=== PATIENT | female | born 1990 | race Caucasian/White ===

== ENCOUNTER 2019-11-07 18:19 | Inpatient (IN) | payer BC, SELFPAY ==
[2019-11-07] VITALS (15 sets, daily range): BP systolic 114–147; BP diastolic 66–99; PULSE 86–114; TEMP 37.3; BMI 38.7
[2019-11-07 17:32] LABS: Basophils Absolute Auto 0.1 K/mm3 (0.0-0.1); Basophils Percent Auto 0.5 % (0.2-1.2); Eosinophils Absolute Auto 0.1 K/mm3 (0-0.3); Eosinophils Percent Auto 0.6 % (0-4.4); Hematocrit 33.1 % (37.0-47.0); Hemoglobin 11.4 g/dL (12.0-15.0); Immature Granulocyte Absolute 0.33 K/mm3 (0.00-0.031); Immature Granulocyte Percent A 2.8 % (0-0.5); Lymphocytes Absolute Auto 2.21 K/mm3 (0.9-3.2); Lymphocytes Percent Auto 18.7 % (18.3-44.2); Mean Corpuscular HGB Conc 34.4 g/dl (32-36); Mean Corpuscular Hemoglobin 30.2 pg (26-34); Mean Corpuscular Volume 87.6 fl (80-100); Mean Platelet Volume 12.7 fl (7.4-10.4); Monocytes Absolute Auto 0.9 K/mm3 (0.1-0.6); Monocytes Percent Auto 7.9 % (2.6-8.5); Neutrophils Absolute Auto 8.2 K/mm3 (1.3-6.7); Neutrophils Percent Auto 69.5 % (45.5-73.1); Platelet Count Result 170 k/mm3 (150-375); Red Blood Count 3.78 M/mm3 (4.2-5.4); White Blood Count 11.8 K/mm3 (4.5-10.0)
[2019-11-07 17:44] LABS: Alanine Aminotransferase 11 U/L (4-35); Albumin Level 3.4 g/dL (3.5-5.1); Alkaline Phosphatase 169 U/L (38-126); Anion Gap 5 mmol/L (8-16); Aspartate Amino Transferase 18 U/L (14-36); Bilirubin,Total 0.3 mg/dL (0.2-1.3); Blood Urea Nitrogen 6 mg/dL (7-17); Calcium 8.9 mg/dL (8.4-10.2); Carbon Dioxide 21 mmol/L (22-30); Chloride 106 mmol/L (98-107); Estimated Glomerular Filt Rate > 60; Glucose 90 mg/dL (65-105); Potassium 3.8 mmol/L (3.4-5.0); Sodium 132 mmol/L (137-145); Uric Acid 5.1 mg/dL (2.5-7.5)
[2019-11-07 17:50] LABS: Add Urine Microscopic? YES; Appearance Urine Clear (Clear); Bacteria Urine Trace /hpf; Bilirubin Urine Negative (Negative); Blood Urine Negative (Negative); Color Urine Colorless (Yellow); Glucose Urine UA Negative (Negative); Ketones Urine Negative (Negative); Leukocyte Esterase Ur 1+ LEU/UL (NEGATIVE); Nitrate Urine Negative (Negative); Protein Urine Negative (Negative); Squamous Epithelial Cell Urine Occasional /hpf (Few); Urobilinogen Urine Negative mg/dL (<2.0)
[2019-11-07 17:51] LABS: Specific Grav Ur 1.003 (1.001-1.035)
[2019-11-07 17:52] LABS: Creatinine Urine 11.9 mg/dL; Total Protein Urine Random 15 mg/dL
--- NOTE | 2019-11-07 19:22 | LDADM ---
This patient, Angy Aleman, was admitted to Labor/Delivery/Recovery 104 on 11/07/19 at 18:19. Plans for labor, pain management and were discussed with patient. Patient/family oriented to hospital policies and general routines including ID bracelet, bed and alarms, visiting hours, pain management, procedures, bathroom and other care routines, personal items, smoking policy, room service/diet and guest tray routines, security routines, and visiting hours. Patient/Family are encouraged to report perceived risks to care and to ask questions if they do not understand what they are told or what they should do. See OBIX for further documentation.
[2019-11-07] MEDS: DINOPROSTONE 10 MG VAG INSERT VAGINAL (19:59)
[2019-11-07] MEDS: AMPICILLIN 2 GM/NS 100 ML 2 GM/100 ML BAG IVPB (20:00)
[2019-11-07] MEDS: LACTATED RINGERS 1,000 ML 125 ML IV CONT (20:00)
[2019-11-07] MEDS: diphenhydrAMINE HCl CAP 25 MG CAPSULE PO (22:13)
[2019-11-07] MEDS: ACETAMINOPHEN 325 MG TABLET 650 MG PO (22:13)
[2019-11-07] MEDS: CALCIUM CARBONATE (TUMS) 500 MG (200 MG ELEMENTAL) PO (23:39)
[2019-11-07] MEDS: AMPICILLIN 1 GM/NS 50 ML 1 GM/50 ML BAG IVPB (23:39)
[2019-11-08] VITALS (117 sets, daily range): BP systolic 66–178; BP diastolic 16–148; PULSE 60–219; RESP 18–20; TEMP 36.1–37.4; O2SAT 87–100
[2019-11-08] MEDS: AMPICILLIN 1 GM/NS 50 ML 1 GM/50 ML BAG IVPB ×2 (04:05→08:00)
[2019-11-08] MEDS: OXYTOCIN 30 UNITS/NS 500 ML 30 UNITS/500 ML BAG 6 UNITS IV CONT (05:55)
--- NOTE | 2019-11-08 07:37 | WPDOBADMIT ---
Obstetrics - Admit Note Admission Note: Arom clear fluid cvx /-2 record reviewed. No pertinent additions to the history and/or any subsequent changes in the physical findings that are not consistent with the expected course of the were found. Additions to the history and/or subsequent changes in the physical findings follow. None.
--- NOTE | 2019-11-08 07:52 | WPDANESEPP ---
Anes - Eval Pre Procedure Procedure: Labor epidural Date/Time: 11/08/19 07:52 Surgeon: Jr Preop Diagnosis: pain during labor Pre Op Diagnosis: PIH Patient Data Age: 29 Gender: F Height: 1.68 m Weight: 109 kg Last Vital Signs Temp 37.4 C 11/08/19 04:00 Pulse 84 11/08/19 07:46 BP 149/99 H 11/08/19 07:46 Allergies Allergy/AdvReac Type Severity Reaction Status Date / Time No Known Allergies Allergy Verified 10/26/19 12:42 Home Medications Medication Instructions Recorded Confirmed Type PNV cmb#95-ferrous fumarate-FA 1 tablet PO DAILY 10/26/19 11/07/19 History [] ergocalciferol (vitamin D2) 1,250 mcg PO WEEKLY 10/26/19 11/07/19 History [Vitamin D2] ferrous sulfate [Iron (ferrous 325 mg PO DAILY 10/26/19 11/07/19 History sulfate)] Laboratory Tests 11/07/19 11/07/19 11/07/19 17:24 17:24 17:36 WBC 11.8 K/mm3 H K/mm3 (4.5-10.0) RBC 3.78 M/mm3 L M/mm3 (4.2-5.4) Hgb 11.4 g/dL L g/dL (12.0-15.0) Hct 33.1 % L % (37.0-47.0) MCV 87.6 fl fl (80-100) MCH 30.2 pg pg (26-34) MCHC 34.4 g/dl g/dl (32-36) RDW 13.0 % % (11.5-14.5) Plt Count 170 k/mm3 k/mm3 (150-375) MPV 12.7 fl H fl (7.4-10.4) Immature Gran % (Auto) 2.8 % H % (0-0.5) Neut % (Auto) 69.5 % % (45.5-73.1) Lymph % (Auto) 18.7 % % (18.3-44.2) [place] % (Auto) 7.9 % % (2.6-8.5) Eos % (Auto) 0.6 % % (0-4.4) Baso % (Auto) 0.5 % % (0.2-1.2) Lymph # (Auto) 2.21 K/mm3 K/mm3 (0.9-3.2) [place] # (Auto) 0.9 K/mm3 H K/mm3 (0.1-0.6) Eos # (Auto) 0.1 K/mm3 K/mm3 (0-0.3) Baso # (Auto) 0.1 K/mm3 K/mm3 (0.0-0.1) Abs Immat Gran (auto) 0.33 K/mm3 H K/mm3 (0.00-0.031) Absolute Neuts (auto) 8.2 K/mm3 H K/mm3 (1.3-6.7) Absolute Nucleated RBC 0.0 K/mm3 K/mm3 (0.0-0.012) Nucleated RBC % 0.0 % % (0.0-0.2) Sodium 132 mmol/L L mmol/L (137-145) Potassium 3.8 mmol/L mmol/L (3.4-5.0) Chloride 106 mmol/L mmol/L (98-107) Carbon Dioxide 21 mmol/L L mmol/L (22-30) Anion Gap 5 mmol/L L mmol/L (8-16) BUN 6 mg/dL L mg/dL (7-17) Creatinine 0.40 mg/dL L mg/dL (0.7-1.0) Estim Creat Clear Calc Not Reportable Estimated GFR > 60 (59 - ) Glucose 90 mg/dL mg/dL (65-105) Uric Acid 5.1 mg/dL mg/dL (2.5-7.5) Calcium 8.9 mg/dL mg/dL (8.4-10.2) Total Bilirubin 0.3 mg/dL mg/dL (0.2-1.3) AST 18 U/L U/L (14-36) ALT 11 U/L U/L (4-35) Alkaline Phosphatase 169 U/L H U/L (38-126) Total Protein 6.0 g/dL L g/dL (6.3-8.2) Albumin 3.4 g/dL L g/dL (3.5-5.1) Urine Color Colorless (Yellow) Urine Appearance Clear (Clear) Urine pH 7.0 (5.0-9.0) Ur Specific [place] 1.003 (1.001-1.035) Urine Protein Negative mg/dL mg/dL (Negative) Urine Glucose (UA) Negative mg/dL mg/dL (Negative) Urine Ketones Negative mg/dL mg/dL (Negative) Ur Blood (Man) Negative (Negative) Urine Nitrate Negative (Negative) Urine Bilirubin Negative (Negative) Urine Urobilinogen Negative mg/dL mg/dL (<2.0) Ur Leukocyte Esterase 1+ ADY/UL H ADY/UL (NEGATIVE) Urine RBC 3-5 /hpf H /hpf (0-2) Urine WBC 4-6 /hpf H /hpf (0-3) Ur Squamous Epith Cells Occasional /hpf /hpf (Few) Urine Bacteria Trace /hpf /hpf U Random Total Protein Urine Creatinine RPR Blood Type Antibody Screen 11/07/19 11/07/19 11/07/19 17:36 19:34 19:34 WBC RBC Hgb Hct
[2019-11-08 08:24] LABS: Rapid Plasma Reagin Non-Reactive (NonReactive)
[2019-11-08] MEDS: ONDANSETRON INJ 4 MG/2 ML VIAL IV PUSH ×2 (08:25→20:54)
[2019-11-08] MEDS: LACTATED RINGERS 1,000 ML 125 ML IV CONT ×2 (08:52→10:43)
[2019-11-08] MEDS: TERBUTALINE SULFATE 1 MG/ML VIAL (09:58)
[2019-11-08] MEDS: TERBUTALINE SULFATE 1 MG/ML VIAL 0.25 MG SUB-Q (10:40)
--- NOTE | 2019-11-08 11:07 | WPDANESEFPP ---
Anes - Eval Final PreProcedure Day of Procedure 11/08/19 11:07 Patient weight: obese Heart: regular rate and rhythm Lungs: clear to auscultation Airway: Mallampati scale class II Neurological: alert and oriented ASA classification: II Emergent: yes Anesthetic plan: proceed Anesthesia type and monitoring: regional epidural and standard monitoring Other findings: existing epid for c/s Informed Consent: The patient's anesthetic plan and its attendant risks and benefits were discussed with the patient/family/POA. Questions were solicited and answers provided to the satisfaction of the patient/family/POA.
--- NOTE | 2019-11-08 12:41 | P.PCNOB_ITS ---
OB - Delivery Note Procedure Delivery date: 11/08/19 Procedure: Procedures Operation Date: 11/08/19 10:45 Actual Procedures Side Surgeon p Section Enrrique Carbajal MD Estimated blood loss (mL): 460 Anesthesia type: Epidural Disposition: PACU Complications: None Narrative: An episode of bradycardia in the context of decreased blood pressure and frequent contractions prompted the nursing staff to call me to the bedside emergently, as I happened to be in the building. The [facility] responded to resuscitation efforts after position change, IV fluid bolus, cessation of oxytocin, administration of terbutaline 0.25 mg sc, and an amnioinfusion. However, another bradycardia episode did not recover easily, and Dr. Norris made the decision to proceed to emergent primary . As I was present, I continued to cover until her arrival. We reviewed the risks / benefits / alternatives and she elected to proceed. The patient was taken to the operating room where she was prepared and draped in the usual sterile fashion in dorsal supine position with a leftward tilt. She received cefazolin preoperatively. Epidural anesthesia was found to be adequate. A Pfannenstiel skin incision was made and carried through to the underlying layer of the fascia. The fascia was incised in the midline and the incision was extended laterally. The fascia was dissected free of the underlying rectus muscles. The rectus muscles were in the midline. The peritoneum was identified, tented up and entered sharply. The peritoneal incision was extended superiorly and inferiorly with good visualization of the bladder. The bladder blade was placed. The vesicouterine peritoneum was identified, tented up and entered sharply. The incision was extended laterally and the bladder flap was developed. The bladder blade was replaced. The uterus was then incised sharply in a transverse fashion along the lower uterine segment. The incision was extended laterally. The 's head was delivered atraumatically to the sterile field, followed by the body. The nose and mouth were bulb suctioned. After a delay, the cord was clamped and cut. The was handed off the field to the waiting supervisor [employer] and nursery staff. Cord blood was collected. The placenta was removed manually and was passed off the field. The uterus was exteriorized and cleared of all clots and debris. At this point, Dr. Norris had arrived and scrubbed, and she assumed care of the patient. I broke scrub and left the room. Baby Date of : 11/08/19 Time of : 11:00 Weeks of gestation at delivery: 37 Infant gender: Male Weight (pounds): 6 Weight (ounces): 10 presentation: vertex Placenta delivery description: Manual Removal and Normal Configuration cord vessel description: 3 Vessels score one minute: 7 score five minutes: 9
--- NOTE | 2019-11-08 14:36 | PC.NURSE ---
Dr. Carbajal in OR at 1050- out of OR at 1105 Dr. Norris in OR at 1103- out of OR at 1125
--- NOTE | 2019-11-08 15:05 | PC.NURSE ---
Addendum entered by Alexandra Van RN 11/08/19 15:05: Pt. admitted to room at 1414. Original Note: Patient transferred to post room # 281 per stretcher. Support person present. Oriented to unit, room, information board, rooming in, admission packet and security measures. Patient verbalizes understanding.
[2019-11-08] MEDS: SIMETHICONE 80 MG TAB.CHEW PO (16:31)
[2019-11-08] MEDS: diphenhydrAMINE HCl INJ 50 MG/ML VIAL IV PUSH (16:31)
[2019-11-08] MEDS: IBUPROFEN 600 MG TABLET PO (19:07)
[2019-11-08] MEDS: DOCUSATE SODIUM 100 MG CAPSULE PO (19:08)
[2019-11-08] MEDS: DEXTROSE 5%/0.45% SOD CHL 1,000 ML 125 ML IV CONT (20:00)
[2019-11-09] VITALS: BP 124/66; PULSE 103; RESP 20; TEMP 37.2; O2SAT 95
[2019-11-09] MEDS: IBUPROFEN 600 MG TABLET PO ×3 (03:29→16:54)
[2019-11-09 04:00] VITALS: BP 121/60; PULSE 109; RESP 16; TEMP 36.9; O2SAT 95
[2019-11-09 05:13] LABS: Basophils Absolute Auto 0.1 K/mm3 (0.0-0.1); Basophils Percent Auto 0.3 % (0.2-1.2); Eosinophils Percent Auto 0.1 % (0-4.4); Hematocrit 34.8 % (37.0-47.0); Hemoglobin 11.3 g/dL (12.0-15.0); Immature Granulocyte Absolute 0.27 K/mm3 (0.00-0.031); Immature Granulocyte Percent A 1.5 % (0-0.5); Immature Platelet Fraction Pct 9.8 % (0.9-11.2); Lymphocytes Absolute Auto 2.09 K/mm3 (0.9-3.2); Lymphocytes Percent Auto 11.3 % (18.3-44.2); Mean Corpuscular HGB Conc 32.5 g/dl (32-36); Mean Corpuscular Hemoglobin 29.7 pg (26-34); Mean Corpuscular Volume 91.6 fl (80-100); Mean Platelet Volume 13.2 fl (7.4-10.4); Monocytes Absolute Auto 1.6 K/mm3 (0.1-0.6); Monocytes Percent Auto 8.5 % (2.6-8.5); Neutrophils Absolute Auto 14.5 K/mm3 (1.3-6.7); Neutrophils Percent Auto 78.3 % (45.5-73.1); Platelet Count Result 172 k/mm3 (150-375); Red Cell Distribution Width 13.3 % (11.5-14.5); White Blood Count 18.5 K/mm3 (4.5-10.0)
--- NOTE | 2019-11-09 07:00 | PC.NURSE ---
PT introductions made and plan of care discussed per post op c section, pain management, breast feeding, daily care activities. PT verbalized understanding of such care.
[2019-11-09 08:20] VITALS: BP 105/52; PULSE 88; RESP 18; TEMP 37.2; O2SAT 96
--- NOTE | 2019-11-09 08:53 | P.PNOB_ITS ---
OB - PN: Subj Subjective Date/time seen: 11/09/19 08:53 S: doing well no complaints. Tolerating regular diet no headaches or vision changes. minimal bleeding. OB - PN: Obj Data Labs CBC & Chem 7: 11/09/19 03:50 11/07/19 17:24 Labs: Laboratory Results - last 24 hr 11/09/19 03:50 WBC 18.5 H RBC 3.80 L Hgb 11.3 L Hct 34.8 L MCV 91.6 MCH 29.7 MCHC 32.5 RDW 13.3 Plt Count 172 MPV 13.2 H Immature Gran % (Auto) 1.5 H Neut % (Auto) 78.3 H Lymph % (Auto) 11.3 L [place] % (Auto) 8.5 Eos % (Auto) 0.1 Baso % (Auto) 0.3 Lymph # (Auto) 2.09 [place] # (Auto) 1.6 H Eos # (Auto) 0.0 Baso # (Auto) 0.1 Abs Immat Gran (auto) 0.27 H Absolute Neuts (auto) 14.5 H Absolute Nucleated RBC 0.0 Nucleated RBC % 0.0 % Immature Plt Fraction 9.8 OB - PN A/P Assessment and Plan (1) S/P : Code(s): Z98.891 - History of uterine scar from previous surgery Status: Acute Assessment and Plan: s/p post emergent csection for FITL. doing well continue with pp care. (2) PIH ( induced hypertension): Code(s): O13.9 - Gestational [-induced] hypertension without significant proteinuria, unspecified trimester Status: Acute Assessment and Plan: continue to monitor bps at this time stable. consider magnesium if bps increase. Time Spent With Patient Time: Total time spent is greater than 50% in coordination of care (as documented) at patient's floor/unit and/or counseling patient: Exam GI: Other: inc: c/d/i ff below umbilicus
--- NOTE | 2019-11-09 09:00 | P.OP_ITS ---
Procedure Note - Detailed Date of procedure: 11/09/19 Pre-op diagnosis: PIH nonreassuring heart tone/FITL Post-op diagnosis: same Procedure performed: primary csection Description of procedure: The patient was taken to the operating room with IV running with Dr. Carbajal. Please see Dr Martinez note. Surgery taken over by Dr. Norris at this time. The uterine incision was then closed with 0 Monocryl in a running locked fashion. Second layer the same suture was used to imbricate this incision. A layer of intercede was place over incision in a T fashion. Uterus was returned to the abdomen the gutters were ir rigated and cleared of all clot and debris uterine incision was hemostatic. The muscles were examined hemostasis noted the fascia was closed with O Vicryl in a running fashion. The subcutaneous tissue was irrigated and closed with 3 0 plain gut and the skin was closed with 0 Vicryl on a Alec needle sponge lap and needle counts were correct x2. patient tolerated procedure well patient received 2 g Ancef prior to skin incision. Anesthesia: epidural Surgeon: Livan Norris MD Drains: Yes Packing: No Pathology: none sent Complications: None Condition: stable Disposition: PACU Findings: Grossly normal uterus and ovaries.
--- NOTE | 2019-11-09 09:05 | PC.NURSE ---
Mother called out for assist with feeding . Consulted with patient, mother reports infant is sleepy and is having difficulties with latching. is inconsistent with eagerness and latching, some feedings infant will be easily awoken and latch other mother struggles to get infant to latch. Infant has been nursing using the nipple shield for all feedings. Discussed nipple shield precautions and possible complications. Instructions given on application and cleaning of shield.Patient able to return demonstration on proper application of shield. Discussed the need to initiate pumping if continues to nurse with the shield. Patient verbalizes understanding. Discussed and the 37 week infant, establishing may have its own unique set of circumstances due to their immaturity. infants may be less alert, have less stamina and may have issues with latch, suck and swallow. With the possible inability to have a vigorous suck swallow, infants may not be adequately stimulating mother and/or able to have adequate milk transfer. Pumping should be considered for additional stimulation and to offer EBM as part of supplement if needed. Reviewed infant feeding cues, frequencies, duration of feedings, feeding elimination flow sheet, and signs of adequate intake. Demonstrated stimulation techniques to wake for feeding. Assisted with infant to breast. Reviewed positioning/alignment in cross cradle, holding breast in U hold and guided asymmetrical latch on. Discussed the rational for each. was able to latch correctly using the nipple shield. nursed in bursts with eager steady draws and occasional swallowing noted followed with long pausing. Reviewed signs of a correct latch, effective nursing and suck swallow ratio. Infant was able to maintain latch without discomfort to mother. Nipple care reviewed. Advised to stimulate while feeding to keep awake and effectively feeding for increased intake and to assist with maintaining deep latch. Demonstrated how to adjust latch more deeply while feeding. Suggested mother initiate pumping to assist with stimulation of mil supply. Instructed mother to call out for RN assistance if she is unable to latch for feeding or she has discomfort with nursing. Instructed feeding should be initiated three hours from start of last feeding or if feeding cues are noted before. Mother voiced understanding of information shared.
[2019-11-09] MEDS: DOCUSATE SODIUM 100 MG CAPSULE PO ×2 (09:49→16:54)
[2019-11-09] MEDS: MULTIVIT/MIN/PREN/FOL AC/IRON TABLET 1 TAB PO (09:50)
[2019-11-09] MEDS: SIMETHICONE 80 MG TAB.CHEW PO ×2 (09:50→16:52)
[2019-11-09] MEDS: LANOLIN (LANSINOH) 7.5 GM CREAM 1 APPLIC TOPICAL (09:51)
[2019-11-09 10:00] VITALS: PULSE 88; RESP 18; O2SAT 96
--- NOTE | 2019-11-09 10:40 | PM.IMHP ---
H&P: HPI History of Present Illness Date/Time: 11/09/19 10:40 Chief complaint: PIH Narrative: Angy Sorto is a 29 year old female primip admitted for iol for PIH at 37 weeks s/p cervidil overnite AROm with clear fluid 1cm 50/-2 . Patient beagn to have bradycardia after epidural called to bedside Dr falk to evaluate s/p terbutaline and resuscitation measures. Patient continued to have decels and taken for emergency csection met Dr. Falk in OR. [facility] Past Medical History Medical History Anemia IUP (intrauterine ), incidental Obesity (BMI 35.0-39.9 without comorbidity) PIH ( induced hypertension) Surgical History Surgical History S/P Family History Family History Other No pertinent family history Social History Social History Smoking status: Never smoker Substance use: never Gender identity (if verbalized by the patient): Female Spiritual care concerns: No Meds Home Medications and Allergies Home Medications Medication Instructions Recorded Confirmed Type PNV cmb#95-ferrous fumarate-FA 1 tablet PO DAILY 10/26/19 11/07/19 History [] ergocalciferol (vitamin D2) 1,250 mcg PO WEEKLY 10/26/19 11/07/19 History [Vitamin D2] ferrous sulfate [Iron (ferrous 325 mg PO DAILY 10/26/19 11/07/19 History sulfate)] Allergies Allergy/AdvReac Type Severity Reaction Status Date / Time No Known Allergies Allergy Verified 10/26/19 12:42 Vital Signs Vital Signs - 24 hr 11/08/19 10:45 11/08/19 11:34 11/08/19 11:35 Temperature 36.4 C Pulse Rate 89 91 Respiratory Rate Blood Pressure 77/46 L 87/36 L Pulse Oximetry 100 87 L 91 11/08/19 11:40 11/08/19 11:41 11/08/19 11:43 Temperature Pulse Rate 92 93 83 Respiratory Rate Blood Pressure 114/57 L 107/54 L 104/46 L Pulse Oximetry 97 11/08/19 11:45 11/08/19 11:46 11/08/19 11:50 Temperature Pulse Rate 93 Respiratory Rate Blood Pressure 95/41 L Pulse Oximetry 97 97 11/08/19 11:51 11/08/19 11:55 11/08/19 11:56 Temperature Pulse Rate 90 95 Respiratory Rate Blood Pressure 108/50 L 93/41 L Pulse Oximetry 95 11/08/19 12:00 11/08/19 12:01 11/08/19 12:05 Temperature 36.2 C L Pulse Rate 84 Respiratory Rate Blood Pressure 97/41 L Pulse Oximetry 93 93 11/08/19 12:06 11/08/19 12:10 11/08/19 12:11 Temperature Pulse Rate 88 83 Respiratory Rate Blood Pressure 96/42 L 92/43 L Pulse Oximetry 97 11/08/19 12:15 11/08/19 12:16 11/08/19 12:20 Temperature Pulse Rate 80 Respiratory Rate Blood Pressure 98/47 L Pulse Oximetry 88 L 94 11/08/19 12:21 11/08/19 12:25 11/08/19 12:26 Temperature Pulse Rate 91 76 Respiratory Rate Blood Pressure 101/43 L 97/45 L Pulse Oximetry 94 11/08/19 12:29 11/08/19 12:31 11/08/19 12:34 Temperature Pulse Rate 79 Respiratory Rate Blood Pressure 104/48 L Pulse Oximetry 94 95 11/08/19 12:35 11/08/19 12:36 11/08/19 12:39 Temperature 36.1 C L Pulse Rate 88 Respiratory Rate Blood Pressure 104/53 L Pulse Oximetry 94 11/08/19 12:40 11/08/19 12:44 11/08/19 12:45 Temperature Pulse Rate 85 80 Respiratory Rate Blood Pressure 105/52 L 102/52 L Pulse Oximetry 94 11/08/19 12:49 11/08/19 12:50 11/08/19 12:54 Temperature Pulse Rate 84 Respiratory Rate Blood Pressure 102/57 L Pulse Oximetry 94 94 11/08/19 12:56 11/08/19 12:59 11/08/19 13:00 Temperature Pulse Rate 88 75 Respiratory Rate Blood Pressure 109/62 107/51 L Pulse Oximetry 94 11/08/19 13:04 09/22/20 13:05 11/08/19 13:06 Temperature 36.2 C L Pulse Rate 77 Respiratory Rate Blood Pressure 118/76 Pulse Ox
--- NOTE | 2019-11-09 11:07 | WPDANLDPN2 ---
Anes-Prog Note L&D Date/Time: 11/09/19 11:07 Comfortable throughout: section Neuraxial method: epidural Epidural/Spinal procedure site: clean & non-tender Neuro status: Neuro function grossly intact. Cardiovascular status: normal Respiratory status: normal Airway patency: baseline Mental status: baseline Post-Op hydration status: normal Vital Signs: Last Vital Signs Temp 37.2 C 11/09/19 08:20 Pulse 88 11/09/19 08:20 Resp 18 11/09/19 08:20 BP 105/52 L 11/09/19 08:20 Pulse Ox 96 11/09/19 08:20 Pain score (VAS): 02/25 I/O: Intake & Output 11/08/19 11/09/19 11/09/19 23:59 07:59 15:59 Intake Total 950 Output Total 3000 Balance -2049 Post-procedural complaints: none Patient feedback: Patient satisfied with anesthetic care.
--- NOTE | 2019-11-09 11:07 | WPDANLDNPN2 ---
Anes-Prog Note L&D-Neuraxial Date/Time: 11/09/19 11:07 Neuraxial medications: epidural PF morphine Opiod-related complaints: none Patient feedback: Patient satisfied with post-operative pain management.
[2019-11-09] MEDS: ACETAMINOPHEN 325 MG TABLET 650 MG PO (16:52)
[2019-11-09 20:00] VITALS: BP 111/66; PULSE 95; RESP 18; TEMP 36.8; O2SAT 97
[2019-11-10] MEDS: ACETAMINOPHEN 325 MG TABLET 650 MG PO ×4 (00:15→22:17)
[2019-11-10] MEDS: IBUPROFEN 600 MG TABLET PO ×4 (00:15→22:16)
--- NOTE | 2019-11-10 08:00 | PC.NURSE ---
PT introductions made and plan of care discussed per post op c section, pain management, daily care activities. PT verbalized understanding of such care.
[2019-11-10 08:05] VITALS: BP 132/79; PULSE 92; RESP 16; TEMP 36.9; O2SAT 98
--- NOTE | 2019-11-10 08:50 | PC.NURSE ---
Consult with pt., mother reports remains sleepy for most feedings, will have a few eager feedings using the nipple shield. Mother supplements after each feeding and will then pump. Mother is able to independently latch infant using nipple shield. Infant is more awake and vigorous with suckling than previous day. Encouraged to stimulate to keep infant awake and nursing effectively for increased intake and assist with maintaining latch. Mother is pumping without difficulties or discomfort. Requested mother call out for assist as needed.
--- NOTE | 2019-11-10 08:57 | WPDANLDPN2 ---
Anes-Prog Note L&D Date/Time: 11/10/19 08:57 Comfortable throughout: section Neuraxial method: epidural Epidural/Spinal procedure site: clean & non-tender Neuro status: Neuro function grossly intact. Cardiovascular status: normal Respiratory status: normal Airway patency: baseline Mental status: baseline Post-Op hydration status: normal Vital Signs: Last Vital Signs Temp 36.8 C 11/09/19 20:00 Pulse 95 11/09/19 20:00 Resp 18 11/09/19 20:00 BP 111/66 11/09/19 20:00 Pulse Ox 97 11/09/19 20:00 Pain score (VAS): 0 Post-procedural complaints: none Patient feedback: Patient satisfied with anesthetic care.
--- NOTE | 2019-11-10 08:58 | WPDANLDNPN2 ---
Anes-Prog Note L&D-Neuraxial Date/Time: 11/10/19 08:58 Neuraxial medications: epidural PF morphine Opiod-related complaints: none Patient feedback: Patient satisfied with post-operative pain management.
[2019-11-10] MEDS: SIMETHICONE 80 MG TAB.CHEW PO ×2 (09:50→16:09)
[2019-11-10] MEDS: MULTIVIT/MIN/PREN/FOL AC/IRON TABLET 1 TAB PO (09:51)
[2019-11-10] MEDS: DOCUSATE SODIUM 100 MG CAPSULE PO ×2 (09:51→16:09)
[2019-11-10 14:26] VITALS: PULSE 92; RESP 16; O2SAT 98
--- NOTE | 2019-11-10 14:26 | PC.NURSE ---
Actual patient physical assessments were done at 0800 instead of the charted time of 1426.
--- NOTE | 2019-11-10 17:15 | PM.OBPNVD ---
OB - PN: Subj Subjective Date/time seen: 11/10/19 17:15 doing well no complaints breast going okay OB - PN: Obj Data Labs CBC & Chem 7: 11/09/19 03:50 11/07/19 17:24 OB - PN A/P Assessment and Plan (1) S/P : Code(s): Z98.891 - History of uterine scar from previous surgery Status: Acute (2) Non-reassuring electronic monitoring tracing: Code(s): O36.8390 - Maternal care for abnormalities of the heart rate or rhythm, unspecified trimester, not applicable or unspecified Status: Acute Assessment and Plan: continue with pp care no complaints today. Time Spent With Patient Time: Total time spent is greater than 50% in coordination of care (as documented) at patient's floor/unit and/or counseling patient:
--- NOTE | 2019-11-10 19:00 | PC.NURSE ---
Patient viewed the discharge video Mother & Baby Care, The First Two Weeks . Patient was given the opportunity and encouraged to ask questions. Patient verbalized understanding of information shared and has been given the mother/baby guide for home reference.
[2019-11-10 22:00] VITALS: BP 140/80; PULSE 94; RESP 16; TEMP 36.9; O2SAT 99
[2019-11-11] MEDS: MULTIVIT/MIN/PREN/FOL AC/IRON TABLET 1 TAB PO (08:04)
[2019-11-11] MEDS: IBUPROFEN 600 MG TABLET PO (08:04)
[2019-11-11] MEDS: DOCUSATE SODIUM 100 MG CAPSULE PO (08:04)
[2019-11-11 08:05] VITALS: BP 129/97; PULSE 87; RESP 18; TEMP 36.6; O2SAT 99
[2019-11-11] MEDS: ACETAMINOPHEN 325 MG TABLET 650 MG PO (08:05)
--- NOTE | 2019-11-11 09:30 | PC.NURSE ---
Mother she is able to independently latch with appropriate positioning/alignment without shield at times. She denies any nipple discomfort, is feeding as required and waking to feed if needed. is improving on eagerness and duration at the breast in the past 24 hours, and is currently meeting outcomes for weight, output, jaundice and feeding frequencies. Parents will continue to supplement after all feedings until mother's milk is established and is consistent with effective feedings. Discussed when may need to increase supplementation and when infant may be ready to decrease supplementation. Advised not to discontinue supplement until discussed with ICP. Mother states she feels confident to continue current feeding plan at home. Reviewed transition to breast milk, signs of adequate intake, and engorgement/relief. Instructed to call ICP if intake/output less than required. Reviewed regular medications mother is taking. Information provided per [place]. Reviewed community resources on the [facility] website and in the Mom/Baby guide. Information on outpatient services provided. Mother has no further questions at this time.
[2019-11-14 11:46] VITALS: BP 148/88; PULSE 88; RESP 20; O2SAT 100
--- NOTE | 2019-11-19 11:22 | PM.OBDSVD ---
DS: Admitting Diagnosis Admitting Diagnosis Admitting Diagnosis: PIH DS: Discharge Diagnosis Discharge Diagnosis (1) S/P : Code(s): Z98.891 - History of uterine scar from previous surgery Status: Acute (2) PIH ( induced hypertension): Code(s): O13.9 - Gestational [-induced] hypertension without significant proteinuria, unspecified trimester Status: Acute OB - DS: Summary OB Procedures : PIH Mgmt OB Procedures Intrapartum: OB Procedures: : None Peripartum Data Procedures: Procedures Operation Date: 11/08/19 10:45 Actual Procedures Side Surgeon p Section Enrrique Carbajal MD Time Spent with Patient Time attestation: Total time spent providing and/or coordinating discharge services: DS: Data Data Completed and Pending Completed studies during hospitalization: Pending at discharge 11/08/19 11:01 Surgical [PTH] Routine Discharge Plan Discharge Attending physician on discharge: Livan Norris Consulting providers: Enrrique Carbajal ; Melvin Zavaleta Discharging Clinician: Livan Norris Patient Disposition: Home, Self-Care Activity: may drive after 2 weeks and pelvic rest Diet: regular Discharge Instructions: Education: Mom and Baby Guide Given to: Mother Follow-Up: Call your delivering provider's office for an appointment to be seen in: 1 Week Mom and baby should come to the [facility] for the follow-up appointment. Appointment Date/Time: November 14, 2019 at 11:00 am What to expect at your follow-up visit: Blood Pressure Check Physical Assessment Call [phone] if you are unable to keep your appointment time. BREAST CARE: * Wear a snug supportive bra. * For engorgement discomfort: Breast Feeding: * Apply warm moist washcloths * Express milk as needed to relieve engorgement * Wear loose clothing * For sore nipples: * Identify correct latch-on * Apply warm moist washcloths before and after nursing * Air dry nipples after nursing * May apply Lansinoh cream to nipples ABDOMINAL INCISION: (if applicable) * Allow incision to air dry * Do NOT use lotions for powders on your incision * When showering, allow soap and water to run over the incision, but do not wash incision EPISIOTOMY/PERINEAL CARE: * Until bleeding stops, use your azalia bottle after urinating * Change your pad frequently throughout the day * No tub baths until seen by your physician - You may shower ACTIVITY: * Rest as much as possible. * Do not exercise or lift anything heavier than your baby (such as laundry or other children.) * Avoid stairs or driving as much as possible. * Do not put anything into the vagina. No douching, tampons, or sexual activity until seen by physician. NOTIFY PHYSICIAN IF YOU HAVE ANY QUESTIONS OR IF ANY OF THE FOLLOWING SYMPTOMS OCCUR: * If your incision becomes red, swollen, or more painful than what you have experienced in the hospital. * If your vaginal bleeding becomes foul smelling. * If your vaginal bleeding becomes more heavy than a period or if your bleeding changes from pink to bright red. However, you may pass an occasional walnut-sized clot once or twice for the first week . * If you experience a sharp, shooting pain in you calves. * If you discover a hard, reddened area on your breast or if you experience flu-like symptoms. DIET: * Eat regular, well-balanced meals. * Drink plenty of fluids daily. If , drink to thirst. Stand Alone Forms: General Discharge Information Follow-up/Referrals: Livan Norris MD [Physician] - Discharge Medications: New hydrocodone-acetaminophen 5-325 mg Tablet 1 tab PO Q3H PRN (Reason: Moderate Pain (4-6)) Qty: 30 RF: 0 Continued ferrous sulfate [Iron (ferrous sulfate
== END 2019-11-11 12:45 | disposition home or self-care (01) | DRG 788 ==
LOC: ANHOBOP 18:20 → ANHOBPP 18:20 → ANHLDR 18:44 → ANHOB2 11-08 14:17
PROVIDERS: Obstetrics & Gynecology; Admitting Provider Obstetrics & Gynecology; Visit Provider Obstetrics & Gynecology
PROC: (CPT 59514; principal; 2019-11-08 10:45)
DX: O13.4 Gestational [pregnancy-induced] hypertension without significant proteinuria, complicating childbirth (principal); O36.8330 Maternal care for abnormalities of the fetal heart rate or rhythm, third trimester, not applicable or unspecified; O14.94 Unspecified pre-eclampsia, complicating childbirth; O99.824 Streptococcus B carrier state complicating childbirth; O76 Abnormality in fetal heart rate and rhythm complicating labor and delivery; Z3A.37 37 weeks gestation of pregnancy; Z37.0 Single live birth; O99.214 Obesity complicating childbirth; E66.9 Obesity, unspecified
CPT/HCPCS: 36415; 80053; 81001; 82570; 84156; 84550; 85025; 85055; 86592; 86850; 86900; 86901; 87086; 88307; A9270; J0290; J1200; J2274; J2370; J2405; J2590; J2795; J3105; J7120

== ENCOUNTER 2019-11-15 15:59 | Outpatient (CLI) | payer BC, SELFPAY ==
[2019-11-15] VITALS (8 sets, daily range): BP systolic 149–168; BP diastolic 89–98; PULSE 67–83
[2019-11-15 16:39] LABS: Basophils Absolute Auto 0.1 K/mm3 (0.0-0.1); Basophils Percent Auto 0.6 % (0.2-1.2); Eosinophils Absolute Auto 0.2 K/mm3 (0-0.3); Eosinophils Percent Auto 1.5 % (0-4.4); Hematocrit 35.3 % (37.0-47.0); Hemoglobin 11.8 g/dL (12.0-15.0); Immature Granulocyte Absolute 0.19 K/mm3 (0.00-0.031); Immature Granulocyte Percent A 1.6 % (0-0.5); Lymphocytes Absolute Auto 2.84 K/mm3 (0.9-3.2); Lymphocytes Percent Auto 24.4 % (18.3-44.2); Mean Corpuscular HGB Conc 33.4 g/dl (32-36); Mean Corpuscular Hemoglobin 29.6 pg (26-34); Mean Corpuscular Volume 88.5 fl (80-100); Monocytes Absolute Auto 0.8 K/mm3 (0.1-0.6); Monocytes Percent Auto 6.9 % (2.6-8.5); Neutrophils Absolute Auto 7.6 K/mm3 (1.3-6.7); Platelet Count Result 307 k/mm3 (150-375); Red Blood Count 3.99 M/mm3 (4.2-5.4); Red Cell Distribution Width 12.6 % (11.5-14.5); White Blood Count 11.7 K/mm3 (4.5-10.0)
[2019-11-15 16:50] LABS: Alanine Aminotransferase 19 U/L (4-35); Albumin Level 3.6 g/dL (3.5-5.1); Alkaline Phosphatase 103 U/L (38-126); Anion Gap 7 mmol/L (8-16); Aspartate Amino Transferase 24 U/L (14-36); Bilirubin,Total 0.4 mg/dL (0.2-1.3); Blood Urea Nitrogen 10 mg/dL (7-17); Calcium 8.8 mg/dL (8.4-10.2); Carbon Dioxide 29 mmol/L (22-30); Chloride 104 mmol/L (98-107); Estimated Glomerular Filt Rate > 60; Glucose 93 mg/dL (65-105); Lactate Dehydrogenase 571 U/L (313-618); Sodium 140 mmol/L (137-145); Uric Acid 6.2 mg/dL (2.5-7.5)
--- NOTE | 2019-11-15 17:09 | PC.NURSE ---
1705--Reported BP's and labs to Dr. Philip. will continue to monitor for 2 additional hours.
[2019-11-15] MEDS: IBUPROFEN 600 MG TABLET PO (17:30)
== END 2019-11-15 19:08 | disposition home or self-care (01) ==
LOC: ANHOBOP 16:05 → ANHOBPP 16:06
PROVIDERS: Visit Provider Obstetrics & Gynecology Gynecology
DX: O16.5 Unspecified maternal hypertension, complicating the puerperium (principal)
CPT/HCPCS: 36415; 80053; 83615; 84550; 85025; 99199; A9270